=== PATIENT | female | born 1950 | race Caucasian/White ===

== ENCOUNTER 2016-10-31 07:51 | Day surgery (SDC) | payer MEDICARE ==
[~2016-10-31] VITALS: Ht 157.5 cm; Wt 81.7 kg
[~2016-10-31 07:51] MED LIST: ALBU8.5H4 IH; AMLO10TA3 PO; ATOR20TA65 PO; BECL8.7A6 IH; DULO20CA18 PO; ESTR1TAB24 PO; GABA600T2 PO; HYDR25TA4 PO; LEFL20TA18 PO; LISI40TA PO; LORA10CA PO; MAGN250T29 PO; METF500T4 PO; METO-274 PO; OMEP20CA11 PO; OXYC10TA69 PO
[2016-10-31] MEDS ORDERED: MethylprednisoLONE Depot 80 mg/mL Inj ONE (07:52)
[2016-10-31 08:17] VITALS: BP 119/61; PULSE 75; RESP 14; O2SAT 98
[2016-10-31] MEDS ORDERED: Gadopentetate Dimeglumine 5 mL Inj IVPUSH ONE (08:19)
--- NOTE | 2016-10-31 16:22 | PCM.PROC ---
Procedure Note Date of Service: Oct 31, 2016 Pre Procedure Diagnosis: PROCEDURE: Lumbar Interlaminar epidural steroid injection. L3-L4 ASA / ANTI-COAGULATION . No asa x 7 days. PRE-PROCEDURE DIAGNOSIS: Lumbar spinal stenosis POST-PROCEDURE DIAGNOSIS: same INDICATION: 66-year-old patient with low back and leg pain consistent with lumbar spinal stenosis PERFORMED BY: Jadon Wilkins MD DESCRIPTION OF PROCEDURE: Patient was met in the holding area. Consent was signed, site was confirmed and all questions were answered. Patient was taken to the procedure suite and placed prone on the procedure table. Area was prepped and draped in sterile fashion. Local anesthesia with 1% lidocaine was injected. An 18-gauge Touhy needle was advanced toward the interlaminar space using fluoroscopic guidance after optimizing the AP view. A loss of resistance syringe was attached as we approached the epidural space in the lateral view. After [id number] was obtained, radioopaque contrast was injected under live fluro which confirmed epidural placement without intravascular uptake. Then ,[]80 mg depomedrol was injected without difficulty. ANESTHESIA: Local EBL: None. No Blood Products Used COMPLICATIONS: None SPECIMENS: None POST-PROCEDURE DISPOSITION: Patient was returned to the holding area in stable condition. They were discharged home when all discharge criteria were met. Evaluation/Physical Exam before discharge revealed: DISCHARGE MEDICATIONS: FOLLOW UP: Keep scheduled followup Jadon Wilkins MD .ED: Y: Patient given care and follow up instructions CC: Jadon Wilkins MD Oct 31, 2016 16:22
== END 2016-10-31 23:59 | disposition home or self-care (01) ==
LOC: END 07:51
PROVIDERS: ATTEND Anesthesiology Pain Medicine
DX: M48.06 Spinal stenosis, lumbar region (principal); G89.4 Chronic pain syndrome
CPT/HCPCS: 62323; 77003; A9579; J1040

== ENCOUNTER 2017-06-03 18:22 | Emergency (ER) | payer MEDICARE, OTHER ==
[~2017-06-03] VITALS: Ht 157.5 cm; Wt 86.4 kg
[~2017-06-03 18:22] MED LIST changes: -METO-274 PO; +METO-394 PO
[2017-06-03 18:32] VITALS: BP_SYST 2; PULSE 118; RESP 19; O2SAT 99
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
[2017-06-03 21:15] VITALS: BP 181/105; PULSE 101; RESP 18; O2SAT 99
== END 2017-06-03 21:16 | disposition home or self-care (01) ==
LOC: SED 18:22
DX: F43.0 Acute stress reaction (principal); I10 Essential (primary) hypertension; J45.909 Unspecified asthma, uncomplicated; K21.9 Gastro-esophageal reflux disease without esophagitis; F41.8 Other specified anxiety disorders; Z87.442 Personal history of urinary calculi; Z98.890 Other specified postprocedural states; Z79.84 Long term (current) use of oral hypoglycemic drugs; Z87.891 Personal history of nicotine dependence; Z88.1 Allergy status to other antibiotic agents; Z88.2 Allergy status to sulfonamides; Z88.8 Allergy status to other drugs, medicaments and biological substances; Z91.041 Radiographic dye allergy status; Z91.048 Other nonmedicinal substance allergy status